=== PATIENT | male | born 1960 | race American Indian/Alaskan Native ===

== ENCOUNTER 2020-06-18 19:53 | Inpatient (IN) | payer BC ==
--- NOTE | 2020-06-18 20:16 | Event Note ---
ED Screening Note Date of service: 06/18/20 Time: 20:12 ED Screening Note: 60-year-old -Swedish male presents to the emergency room complaining of shortness of breath with a nonproductive cough since . Patient states that difficulty in breathing with exertion. Complains of generalized weakness. He has had a fever. Denies any nausea no vomiting. Last Tylenol was at 10 AM today. 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 Patient states he did have a rapid Covid test today and it stated it was negative. Patient is noted to have difficulty speaking in complete sentences mild respiratory distress. This initial assessment/diagnostic orders/clinical plan/treatment(s) is/are subject to change based on patients health status, clinical progression and re- assessment by fellow clinical providers in the ED. Further treatment and workup at subsequent clinical providers discretion. Patient/guardian urged not to elope from the ED as their condition may be serious if not clinically assessed and managed. Initial orders include: Chest x-ray CBC CMP has been ordered.
[2020-06-18 20:52] LABS: Basophils % (Auto) 0.1 % (0.0-1.8); Eosinophils # (Auto) 0.1 K/mm3 (0.0-0.4); Eosinophils % (Auto) 0.7 % (0.0-4.3); Hematocrit 40.6 % (35.5-45.6); Lymphocytes # (Auto) 1.3 K/mm3 (1.2-5.4); Lymphocytes % (Auto) 17.1 % (13.4-35.0); Mean Corpuscular HGB Conc 35 % (32-34); Mean Corpuscular Volume 88 fl (84-94); Monocytes # (Auto) 0.7 K/mm3 (0.0-0.8); Platelet Count 474 K/mm3 (140-440); Red Cell Distribution Width 15.5 % (13.2-15.2)
--- NOTE | 2020-06-18 21:09 | Emergency Department Report ---
ED Shortness of Breath HPI - General Chief Complaint: Dyspnea/Respdistress Stated Complaint: LOW SATS Time Seen by Provider: 06/18/20 20:12 Source: patient Mode of arrival: Ambulatory Limitations: No Limitations - History of Present Illness Initial Comments: 60-year-old male, no past medical history, presents to ED with complaint of difficulty breathing. Patient suspects he may have COVID-19. 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 He reports he began having flulike symptoms about 10 days ago on . Patient reports he has had fever, cough, general malaise, change in sense of taste. He states approximately 5 days ago, he began having difficulty breathing with exertion. Patient had a rapid Covid test today that was negative. MD Complaint: shortness of breath -: days(s) (5) Severity: moderate Consistency: intermittent Improves With: rest Worsens With: exertion Context: recent URI Associated Symptoms: fever, cough Treatments Prior to Arrival: none - Related Data Home Oxygen Therapy: No Allergies Allergy/AdvReac Type Severity Reaction Status Date / Time No Known Allergies Allergy Verified 06/18/20 20:02 ED Review of Systems ROS: Stated complaint: LOW SATS Other details as noted in HPI Comment: All other systems reviewed and negative Constitutional: malaise Eyes: eye pain Respiratory: cough, SOB with exertion Gastrointestinal: diarrhea ED Past Medical Hx - Past Medical History Previous Medical History?: No - Surgical History Past Surgical History?: No - Social History Smoking Status: Former Smoker Substance Use Type: None ED Physical Exam - General Limitations: No Limitations General appearance: alert - Head Head exam: Present: atraumatic, normocephalic - Eye Eye exam: Present: normal appearance, EOMI - ENT ENT exam: Present: mucous membranes moist - Neck Neck exam: Present: normal inspection - Respiratory Respiratory exam: Present: normal lung sounds bilaterally, other (Tachypneic, unable to speak in full sentences) - Cardiovascular Cardiovascular Exam: Present: regular rate, normal rhythm - GI/Abdominal GI/Abdominal exam: Present: soft. Absent: distended, tenderness - Extremities Exam Extremities exam: Present: normal inspection - Neurological Exam Neurological exam: Present: alert, oriented X3 - Psychiatric Psychiatric exam: Present: normal affect, normal mood - Skin Skin exam: Present: warm, dry, intact, normal color ED Course Vital Signs 06/18/20 06/18/20 20:03 21:12 Temperature 98.8 F Pulse Rate 92 H 104 H Respiratory 18 22 Rate Blood Pressure 111/81 O2 Sat by Pulse 94 88 Oximetry - Reevaluation(s) Reevaluation #1: 06/18/20 21:20 With ambulation, patient's O2 sats dropped down to 87-88% RA. ED Medical Decision Making - Lab Data Result diagrams: 06/18/20 20:42 06/18/20 21:20 - EKG Data -: EKG Interpreted by Me EKG shows normal: sinus rhythm, axis, intervals, QRS complexes, ST-T waves Rate: normal - EKG Data Interpretation: no acute changes - Radiology Data Radiology results: report reviewed, image reviewed - Medical Decision Making 60-year-old male presents to ED with likely COVID-19 infection. He reports dyspnea on exertion over the last 5 days. O2 sats dropped to 87-88% on room air with ambulation. Chest x-ray shows patchy airspace opacities bilaterally likely representing viral infectious process. Blood cultures have been drawn. Patient given Rocephin, azithromycin, Decadron. Patient placed on 4 L O2. Covid markers sent as well. Patient will be admitted by hospitalist for further management. - Differential Diagnosis Pneumonia, COVID-19 Critical care attestation.: If time is entered above; I have spent that time in minutes in the direct care of this critically ill patient, excluding procedure time. ED Disposition Clinical Impression: Acute hypoxemic respiratory failure, Suspected 2019 novel coronavirus infection, Pneumonia, Hyponatremia, Hypokalemia Disposition: 09 OP ADMIT IP TO THIS HOSP Is pt being admited?: Yes Condition: Stable Time of Disposition: 22:04
[2020-06-18 21:14] LABS: Alanine Aminotransferase 36 units/L (7-56); Albumin 3.7 g/dL (3.9-5); BUN/Creatinine Ratio 15; Blood Urea Nitrogen 15 mg/dL (9-20); Calcium 8.7 mg/dL (8.4-10.2); Hemolysis Index 12
[2020-06-18] MEDS ORDERED: cefTRIAXone/NS 1 GM/50 ML 1 GM/50 ML BAG IV ONE (21:14)
[2020-06-18] MEDS ORDERED: DEXAMETHASONE 4 MG TAB PO ONE (21:14)
[2020-06-18] MEDS ORDERED: AZITHROMYCIN 250 MG TAB PO ONE (21:14)
[2020-06-18] MEDS ORDERED: POTASSIUM CHLORIDE ER 20 MEQ TAB PO ONE (21:19)
--- NOTE | 2020-06-18 21:25 | XRay Report ---
CHEST 2 VIEWS INDICATION / CLINICAL INFORMATION: sob. COMPARISON: 01/07/2016 FINDINGS: SUPPORT DEVICES: None. HEART / MEDIASTINUM: No significant abnormality. LUNGS / PLEURA: Interval development of patchy airspace opacities throughout bilateral lung ontiveros wi th peripheral predominance, most severe on the right. No pneumothorax. No pleural effusion. ADDITIONAL FINDINGS: No significant additional findings. IMPRESSION: 1. Interval development of patchy airspace opacities within bilateral lung ontiveros as described above likely represent viral versus atypical infectious process. Signer Name: Jf Rose MD Signed: 06/18/2020 9:21 PM Workstation Name: [id number]
[2020-06-18 21:50] LABS: INR 1.13 (0.87-1.13)
[2020-06-18 21:51] LABS: Partial Thromboplastin Time 27.7 Sec. (24.2-36.6)
[2020-06-18 22:02] LABS: C-Reactive Protein 14.4 mg/dL (0.00-1.30)
[2020-06-18] MEDS ORDERED: MAGNESIUM HYDROXIDE (MOM) ORAL LIQD UDC PO PRN (22:41)
[2020-06-18] MEDS ORDERED: ACETAMINOPHEN 325 MG TAB PO PRN (22:41)
[2020-06-18] MEDS ORDERED: ONDANSETRON 4 MG/2 ML INJ IV PRN (22:41)
[2020-06-18] MEDS ORDERED: MORPHINE 2 MG/1 ML INJ IV PRN (22:41)
--- NOTE | 2020-06-18 22:49 | History and Physical Report ---
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 He has been having fever, chills, cough and generalized malaise. He has also had some changes in his sense of taste. Over the past few days he has been having shortness of breath especially with exertion. He denies any sick contacts and no recent travel. He has however been exposed to patient with COVID-19 while on duty in the hospital. He had a rapid Covid test today which he indicates was negative. Upon arrival in the emergency room patient was slightly tachypneic and hypoxic on exertion. Work-up in the emergency room today, chest x-ray : Interval development of patch y airspace opacities within bilateral lung ontiveros - likely represent viral versus atypical infectious process. Covid markers were elevated. Patient has been started on empiric IV antibiotics for pneumonia and to rule out possible Covid. Past History Past Medical History: No medical history Past Surgical History: No surgical history Social history: smoking (Former Smoker) Family history: no significant family history Medications and Allergies Allergies Allergy/AdvReac Type Severity Reaction Status Date / Time No Known Allergies Allergy Verified 06/18/20 20:02 Active Meds: Active Medications Acetaminophen (Acetaminophen 325 Mg Tab) 650 mg PO Q4H PRN PRN Reason: Pain MILD(1-3)/Fever >100.5/PETTIT Dexamethasone (Dexamethasone 4 Mg/Ml Vial) 6 mg IV Q24HR VITO Enoxaparin Sodium (Enoxaparin 40 Mg/0.4 Ml Inj) 40 mg SUB-Q QDAY@2200 VITO; Protocol Ceftriaxone Sodium (Rocephin/Ns 2 Gm/100 Ml) 2 gm in 100 mls @ 200 mls/hr IV Q24H VITO; Protocol Azithromycin 500 mg/ Sodium (Chloride) 250 mls @ 250 mls/hr IV Q24H VITO; Protocol Magnesium Hydroxide (Magnesium Hydroxide (Mom) Oral Liqd Udc) 30 ml PO Q4H PRN PRN Reason: Constipation Morphine Sulfate (Morphine 2 Mg/1 Ml Inj) 2 mg IV Q4H PRN PRN Reason: Pain, Moderate (4-6) Ondansetron HCl (Ondansetron 4 Mg/2 Ml Inj) 4 mg IV Q8H PRN PRN Reason: Nausea And Vomiting Sodium Chloride (Sodium Chloride 0.9% 10 Ml Flush Syringe) 10 ml IV BID VITO Sodium Chloride (Sodium Chloride 0.9% 10 Ml Flush Syringe) 10 ml IV PRN PRN PRN Reason: LINE FLUSH Review of Systems Constitutional: fever, chills, malaise Cardiovascular: no chest pain, no palpitations Respiratory: cough, shortness of breath Gastrointestinal: diarrhea, no abdominal pain, no nausea, no vomiting Genitourinary Male: no dysuria, no hematuria, no flank pain Musculoskeletal: no neck pain, no low back pain Integumentary: no rash, no pruritis Neurological: no headaches, no confusion Psychiatric: no anxiety, no depression Exam - Constitutional Vitals: Temp Pulse Resp BP Pulse Ox 98.8 F 104 H 22 111/81 88 06/18/20 20:03 06/18/20 21:12 06/18/20 21:12 06/18/20 20:03 06/18/20 21:12 General appearance: Present: no acute distress, well-nourished - EENT Eyes: Present: PERRL, EOM intact. Absent: scleral icterus ENT: hearing intact, clear oral mucosa, dentition normal - Neck Neck: Present: supple, normal ROM - Respiratory Respiratory effort: normal Respiratory: bilateral: diminished - Cardiovascular Rhythm: regular Heart Sounds: Present: S1 & S2. Absent: gallop, systolic murmur, diastolic murmur, rub - Extremities Extremities: no ischemia, pulses intact, pulses symmetrical, No edema, Full ROM Peripheral Pulses: within normal limits - Abdominal General gastrointestinal: Present: soft, non-tender, non-distended, normal bowel sounds. Absent: mass - Integumentary Integumentary: Present: clear, warm, dry. Absent: rash - Musculoskeletal Musculoskeletal: strength equal bilaterally - Psychiatric Psychiatric: appropriate mood/affect, intact judgment & insight, memory intact, cooperative - Neurologic Neurologic: CNII-XII intact, no focal deficits, moves all extremities HEART Score - HEART Score Troponin: Troponin T < 0.010 ng/mL (0.00-0.029) 06/18/20 21:20 Results - Labs CBC & Chem 7: 06/18/20 20:42 06/18/20 21:20 Labs: Abnormal lab results 06/18/20 06/18/20 06/18/20 Range/Units 20:42 20:42 21:20 MCHC 35 H (32-34) % RDW 15.5 H (13.2-15.2) % Plt Count 474 H (140-440) K/mm3 [place] % (Auto) 9.0 H (0.0-7.3) % Seg Neutrophils % 73.1 H (40.0-70.0) % D-Dimer 1113.12 H (0-234) ng/mlDDU Sodium 128 L (137-145) mmol/L Potassium 3.4 L (3.6-5.0) mmol/L Chloride 91.3 L (98-107) mmol/L Glucose 101 H (75-100) mg/dL Ferritin (30.0-300.0) ng/mL Lactate Dehydrogenase (91-180) units/L C-Reactive Protein (0.00-1.30) mg/dL Total Protein 8.5 H (6.3-8.2) g/dL Albumin 3.7 L (3.9-5) g/dL 06/18/20 06/18/20 Range/Units 21:20 21:20 MCHC (32-34) % RDW (13.2-15.2) % Plt Count (140-440) K/mm3 [place] % (Auto) (0.0-7.3) % Seg Neutrophils % (40.0-70.0) % D-Dimer (0-234) ng/mlDDU Sodium (137-145) mmol/L Potassium (3.6-5.0) mmol/L Chloride (98-107) mmol/L Glucose 103 H (75-100) mg/dL Ferritin 1133.0 H (30.0-300.0) ng/mL Lactate Dehydrogenase 359 H (91-180) units/L C-Reactive Protein 14.40 H (0.00-1.30) mg/dL Total Protein (6.3-8.2) g/dL Albumin (3.9-5) g/dL Assessment and Plan - Patient Problems (1) Acute hypoxemic respiratory failure Current Visit: Yes Status: Acute Plan to address problem: Possibly secondary to underlying pneumonia. Keep O2 saturation greater or equal to 94%. (2) Pneumonia Current Visit: Yes Status: Acute Plan to address problem: Patient placed on empiric IV antibiotics. Will await culture results. Consult placed to infectious disease for evaluation. (3) Hypokalemia Current Visit: Yes Status: Acute Plan to address problem: Potassium will be repleted and will monitor chemistry. (4) Hyponatremia Current Visit: Yes Status: Acute Plan to address problem: Patient placed on gentle IV fluid normal saline. Will monitor chemistry. (5) Suspected 2019 novel coronavirus infection Current Visit: Yes Status: Acute Plan to address problem: We will await COVID-19 testing. Consult placed to infectious disease for evaluation. (6) DVT prophylaxis Current Visit: Yes Status: Acute Plan to address problem: Patient placed on subcutaneous Lovenox. (7) Full code status Current Visit: Yes Status: Acute Plan to address problem: Patient is a full code.
[2020-06-18] MEDS ORDERED: SODIUM CHLORIDE 0.9% 1000 ML 1,000 ML IV SCH (23:45)
[2020-06-19 06:04] LABS: Mean Corpuscular HGB Conc 33 % (32-34); Mean Corpuscular Volume 90 fl (84-94); Platelet Count 499 K/mm3 (140-440); Red Blood Count 4.69 M/mm3 (3.65-5.03); Red Cell Distribution Width 15.6 % (13.2-15.2)
[2020-06-19 06:14] LABS: INR 1.16 (0.87-1.13)
[2020-06-19 06:21] LABS: BUN/Creatinine Ratio 17; Blood Urea Nitrogen 17 mg/dL (9-20); Hemolysis Index 3
[2020-06-19 06:28] LABS: Eosinophils % (Auto) 0.1 % (0.0-4.3); Lymphocytes # (Auto) 0.7 K/mm3 (1.2-5.4); Lymphocytes % (Auto) 14.2 % (13.4-35.0); Monocytes # (Auto) 0.3 K/mm3 (0.0-0.8); Monocytes % (Auto) 4.1 % (0.0-7.3)
[2020-06-19] MEDS ORDERED: AZITHROMYCIN 500 MG in SODIUM CHLORIDE 0.9% 250ML 250 ML IV SCH (10:00)
[2020-06-19] MEDS ORDERED: cefTRIAXone/NS 2 GM/100 ML 2 GM/100 ML BAG IV SCH (10:00)
[2020-06-19] MEDS: dexAMETHasone 4 MG/ML VIAL IV SCH (10:41)
--- NOTE | 2020-06-19 16:20 | Progress Note ---
Assessment and Plan --Acute hypoxemic respiratory failure Possibly secondary to underlying pneumonia. Keep O2 saturation greater or equal to 94%. -- Pneumonia due to COVID 19 d/c empiric IV antibiotics as procalcitonon level low. Consult placed to infectious disease for evaluation. cont dexamethasone, start on remdesivir follow inflammatory markers -- Hypokalemia repleted and will monitor chemistry. -- Hyponatremia due to dehydration Patient placed on gentle IV fluid normal saline. Will monitor chemistry. --novel coronavirus infection positive COVID-19 testing. Consult placed to infectious disease for evaluation. -- DVT prophylaxis Patient placed on subcutaneous Lovenox. --Full code status 06/19/20: positive for COVID 19, start on remdesivir as patient is hypoxic and presented early in his disease course. consult ID. patient on 3L N/c Subjective Date of service: 06/19/20 Interval history: Patient seen and examined. Medical records and medication list reviewed. No acute event overnight noted by the RN. Patient is positive for COVID-19. Patient is tolerating diet. Patient on 3 L nasal cannula, denies any chest pain Discussed plan of care at bedside with patient. Objective - Exam Narrative Exam: Limited physical exam due to COVID-19 pandemic to limit transmission of the disease and also PPE conservative approach Vitals noted General: No acute distress Neuro: No focal deficits, follow commands Psych: Alert awake and oriented x2 Respiratory/cardiac: Vitals stable, patient on 3 L nasal cannula noted no respiratory distress Skin: No rash Musculoskeletal: No joint swelling - Constitutional Vitals: Vital Signs - 12hr 06/19/20 06/19/20 06/19/20 05:19 05:30 06:00 Temperature Pulse Rate 83 83 81 Respiratory 27 H 17 18 Rate Blood Pressure 115/80 100/74 114/83 O2 Sat by Pulse 98 95 97 Oximetry 06/19/20 06/19/20 06/19/20 06:15 06:30 06:45 Temperature Pulse Rate 82 77 78 Respiratory 17 20 23 Rate Blood Pressure 114/83 108/75 108/75 O2 Sat by Pulse 97 98 Oximetry 06/19/20 06/19/20 06/19/20 06:49 06:51 06:53 Temperature Pulse Rate 76 79 77 Respiratory 17 17 17 Rate Blood Pressure 108/75 108/75 108/75 O2 Sat by Pulse 96 96 96 Oximetry 06/19/20 06/19/20 06/19/20 06:55 06:57 06:59 Temperature Pulse Rate 69 77 78 Respiratory 20 17 16 Rate Blood Pressure 108/75 108/75 108/75 O2 Sat by Pulse 96 96 96 Oximetry 06/19/20 06/19/20 06/19/20 07:00 07:01 07:03 Temperature Pulse Rate 79 88 83 Respiratory 19 26 H 20 Rate Blood Pressure 102/73 102/73 102/73 O2 Sat by Pulse 93 95 96 Oximetry 06/19/20 06/19/20 06/19/20 07:05 07:07 07:09 Temperature Pulse Rate 76 74 86 Respiratory 16 14 13 Rate Blood Pressure 102/73 102/73 102/73 O2 Sat by Pulse 96 96 95 Oximetry 06/19/20 06/19/20 06/19/20 07:11 07:13 07:15 Temperature Pulse Rate 84 83 82 Respiratory 23 22 19 Rate Blood Pressure 102/73 102/73 102/73 O2 Sat by Pulse 96 95 96 Oximetry 06/19/20 06/19/20 06/19/20 07:17 07:19 07:21 Temperature Pulse Rate 83 84 83 Respiratory 14 12 14 Rate Blood Pressure 102/73 102/73 102/73 O2 Sat by Pulse 96 96 96 Oximetry 06/19/20 06/19/20 06/19/20 07:23 07:25 07:27 Temperature Pulse Rate 84 85 84 Respiratory 22 19 18 Rate Blood Pressure 102/73 102/73 102/73 O2 Sat by Pulse 96 97 97 Oximetry 06/19/20 06/19/20 06/19/20 07:29 07:31 07:33 Temperature Pulse Rate 83 84 87 Respiratory 17 19 15 Rate Blood Pressure 102/73 117/83 117/83 O2 Sat by Pulse 97 95 95 Oximetry 06/19/20 06/19/20 06/19/20 07:35 07:37 07:39 Temperature Pulse Rate 86 83 82 Respiratory 19 14 18 Rate Blood Pressure 117/83 117/83 117/83 O2 Sat by Pulse 96 97 97 Oximetry 06/19/20 06/19/20 06/19/20 07:41 07:43 07:45 Temperature Pulse Rate 84 85 87 Respiratory 30 H 17 24 Rate Blood Pressure 117/83 117/83 117/83 O2 Sat by Pulse 93 94 Oximetry 06/19/20 06/19/2006/19/21 07:47 07:49 07:51 Temperature Pulse Rate 88 85 83 Respiratory 18 17 17 Rate Blood Pressure 117/83 117/83 117/83 O2 Sat by Pulse 97 97 Oximetry 06/19/20 06/19/20 06/19/20 07:53 07:55 07:57 Temperature Pulse Rate 81 83 78 Respiratory 21 18 18 Rate Blood Pressure 117/83 117/83 117/83 O2 Sat by Pulse 97 98 97 Oximetry 06/19/20 06/19/20 06/19/20 07:59 08:00 08:01 Temperature Pulse Rate 76 76 92 H Respiratory 18 21 24 Rate Blood Pressure 117/83 113/78 113/78 O2 Sat by Pulse 97 97 Oximetry 06/19/20 06/19/20 06/19/20 08:03 08:05 08:07 Temperature Pulse Rate 80 80 81 Respiratory 20 25 H 23 Rate Blood Pressure 113/78 113/78 113/78 O2 Sat by Pulse 98 97 97 Oximetry 06/19/20 06/19/20 06/19/20 08:09 08:11 08:13 Temperature Pulse Rate 81 84 80 Respiratory 27 H 25 H 17 Rate Blood Pressure 113/78 113/78 113/78 O2 Sat by Pulse 97 97 97 Oximetry 06/19/20 06/19/20 06/19/20 08:15 08:17 08:19 Temperature Pulse Rate 82 80 81 Respiratory 17 18 22 Rate Blood Pressure 113/78 113/78 113/78 O2 Sat by Pulse 97 98 98 Oximetry 06/19/20 06/19/20 06/19/20 08:21 08:23 12:31 Temperature 97.7 F Pulse Rate 83 79 Respiratory 19 19 21 Rate Blood Pressure 113/78 115/71 O2 Sat by Pulse 97 96 97 Oximetry 06/19/20 06/19/20 06/19/20 12:33 12:35 12:37 Temperature Pulse Rate 80 79 78 Respiratory 16 21 14 Rate Blood Pressure 115/71 115/71 115/71 O2 Sat by Pulse 97 96 97 Oximetry 06/19/20 06/19/20 06/19/20 12:39 12:41 12:43 Temperature Pulse Rate 81 85 84 Respiratory 16 19 19 Rate Blood Pressure 115/71 115/71 115/71 O2 Sat by Pulse 96 95 96 Oximetry 06/19/20 06/19/20 06/19/20 12:45 12:47 12:49 Temperature Pulse Rate 85 83 87 Respiratory 19 29 H 19 Rate Blood Pressure 115/71 115/71 115/71 O2 Sat by Pulse 96 97 97 Oximetry 06/19/20 06/19/20 06/19/20 12:51 12:53 12:55 Temperature Pulse Rate 90 92 H 85 Respiratory 29 H 19 22 Rate Blood Pressure 115/71 115/71 115/71 O2 Sat by Pulse 96 94 95 Oximetry 06/19/20 06/19/20 06/19/20 12:57 12:59 13:00 Temperature Pulse Rate 89 90 88 Respiratory 25 H 20 18 Rate Blood Pressure 115/71 115/71 121/79 O2 Sat by Pulse 96 96 93 Oximetry 06/19/20 06/19/20 06/19/20 13:01 13:03 13:05 Temperature Pulse Rate 85 90 90 Respiratory 19 38 H 22 Rate Blood Pressure 121/79 121/79 121/79 O2 Sat by Pulse 95 95 96 Oximetry 06/19/20 06/19/20 06/19/20 13:07 13:09 13:11 Temperature Pulse Rate 87 89 91 H Respiratory 16 34 H 16 Rate Blood Pressure 121/79 121/79 121/79 O2 Sat by Pulse 96 97 97 Oximetry 06/19/20 06/19/20 06/19/20 13:13 13:15 13:16 Temperature Pulse Rate 88 89 87 Respiratory 21 32 H 28 H Rate Blood Pressure 121/79 121/79 121/79 O2 Sat by Pulse 96 95 95 Oximetry 06/19/20 06/19/20 06/19/20 13:17 13:19 13:21 Temperature Pulse Rate 93 H 93 H 90 Respiratory 19 29 H 23 Rate Blood Pressure 121/79 121/79 121/79 O2 Sat by Pulse 93 95 95 Oximetry 06/19/20 06/19/20 06/19/20 13:23 13:24 13:25 Temperature Pulse Rate 92 H 95 H 94 H Respiratory 31 H 21 26 H Rate Blood Pressure 121/79 121/79 121/79 O2 Sat by Pulse 94 96 95 Oximetry 06/19/20 06/19/20 06/19/20 13:27 13:29 13:30 Temperature Pulse Rate Respiratory Rate Blood Pressure 121/79 121/79 106/70 O2 Sat by Pulse 95 97 95 Oximetry 06/19/20 06/19/20 06/19/20 13:31 13:33 13:35 Temperature Pulse Rate 157 H Respiratory Rate Blood Pressure 106/70 106/70 121/79 O2 Sat by Pulse 97 96 97 Oximetry 06/19/20 06/19/20 06/19/20 13:37 13:39 13:41 Temperature Pulse Rate 85 86 84 Respiratory Rate Blood Pressure 121/79 121/79 121/79 O2 Sat by Pulse 97 97 97 Oximetry 06/19/20 06/19/20 06/19/20 13:43 13:45 13:47 Temperature Pulse Rate 82 86 85 Respiratory Rate Blood Pressure 121/79 121/79 121/79 O2 Sat by Pulse 97 96 96 Oximetry 06/19/20 06/19/20 06/19/20 13:49 13:51 13:53 Temperature Pulse Rate 85 86 85 Respiratory Rate Blood Pressure 121/79 121/79 121/79 O2 Sat by Pulse 96 96 96 Oximetry 06/19/20 06/19/20 06/19/20 13:55 13:57 13:59 Temperature Pulse Rate 85 85 84 Respiratory Rate Blood Pressure 121/79 121/79 121/79 O2 Sat by Pulse 96 96 95 Oximetry 06/19/20 14:00 Temperature Pulse Rate 86 Respiratory Rate Blood Pressure 112/77 O2 Sat by Pulse Oximetry - Labs CBC & Chem 7: 06/19/20 04:47 06/19/20 04:47 Labs: Abnormal lab results 06/18/20 06/18/20 06/18/20 Range/Units 20:42 20:42 21:20 MCHC 35 H (32-34) % RDW 15.5 H (13.2-15.2) % Plt Count 474 H (140-440) K/mm3 [place] % (Auto) 9.0 H (0.0-7.3) % Lymph # (Auto) (1.2-5.4) K/mm3 Seg Neutrophils % 73.1 H (40.0-70.0) % INR (0.87-1.13) D-Dimer 1113.12 H (0-234) ng/mlDDU Sodium 128 L (137-145) mmol/L Potassium 3.4 L (3.6-5.0) mmol/L Chloride 91.3 L (98-107) mmol/L Glucose 101 H (75-100) mg/dL Ferritin (30.0-300.0) ng/mL Lactate Dehydrogenase (91-180) units/L C-Reactive Protein (0.00-1.30) mg/dL Total Protein 8.5 H (6.3-8.2) g/dL Albumin 3.7 L (3.9-5) g/dL Coronavirus (PCR) (Negative) 06/18/20 06/18/20 06/19/20 Range/Units 21:20 21:20 04:47 MCHC (32-34) % RDW 15.6 H (13.2-15.2) % Plt Count 499 H (140-440) K/mm3 [place] % (Auto) (0.0-7.3) % Lymph # (Auto) 0.7 L (1.2-5.4) K/mm3 Seg Neutrophils % 81.3 H (40.0-70.0) % INR (0.87-1.13) D-Dimer (0-234) ng/mlDDU Sodium (137-145) mmol/L Potassium (3.6-5.0) mmol/L Chloride (98-107) mmol/L Glucose 103 H (75-100) mg/dL Ferritin 1133.0 H (30.0-300.0) ng/mL Lactate Dehydrogenase 359 H (91-180) units/L C-Reactive Protein 14.40 H (0.00-1.30) mg/dL Total Protein (6.3-8.2) g/dL Albumin (3.9-5) g/dL Coronavirus (PCR) (Negative) 06/19/20 06/19/20 06/19/20 Range/Units 04:47 04:47 Unknown MCHC (32-34) % RDW (13.2-15.2) % Plt Count (140-440) K/mm3 [place] % (Auto) (0.0-7.3) % Lymph # (Auto) (1.2-5.4) K/mm3 Seg Neutrophils % (40.0-70.0) % INR 1.16 H (0.87-1.13) D-Dimer (0-234) ng/mlDDU Sodium 132 L (137-145) mmol/L Potassium (3.6-5.0) mmol/L Chloride 95.3 L (98-107) mmol/L Glucose 122 H (75-100) mg/dL Ferritin (30.0-300.0) ng/mL Lactate Dehydrogenase (91-180) units/L C-Reactive Protein (0.00-1.30) mg/dL Total Protein (6.3-8.2) g/dL Albumin (3.9-5) g/dL Coronavirus (PCR) Positive A (Negative) HEART Score - HEART Score Troponin: Troponin T < 0.010 ng/mL (0.00-0.029) 06/18/20 21:20
[2020-06-19] MEDS ORDERED: REMDESIVIR 100 MG VIAL IV ONE (16:30)
[2020-06-19] MEDS ORDERED: REMDESIVIR 200 MG in SODIUM CHLORIDE 0.9% 250ML 250 ML IV ONE (16:30)
[2020-06-19] MEDS: ZINC SULFATE 220 MG CAP PO SCH ×2 (16:44→22:46)
[2020-06-19] MEDS: ASCORBIC ACID 500 MG TAB PO SCH ×2 (16:44→22:45)
[2020-06-19] MEDS: CHOLECALCIFEROL (VIT D3) 5,000 UNIT TAB PO SCH (16:44)
[2020-06-19] MEDS: IPRATROPIUM/ALBUTEROL SULFATE 3 ML AMPUL.NEB IH SCH ×2 (19:15→20:49)
--- NOTE | 2020-06-19 20:15 | Consultation ---
History of Present Illness - Reason for Consult Consult date: 06/19/20 - History of Present Illness 60-year-old man no past medical history admitted to hospital complaining of flulike symptoms. 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 He complains of fevers, chills, cough, malaise. He has been exposed to Covid patients in the hospital. Afebrile since admission with a normal white count. Covid positive. Procalcitonin normal. Normal renal function. Elevated inflammatory markers. Blood cultures pending. Imaging personally viewed: Chest x-ray: Patchy airspace opacities bilaterally Review of systems: Deferred due to PPE conservation strategy. Past History Past Medical History: No medical history Past Surgical History: No surgical history Social history: smoking (Former Smoker) Family history: no significant family history Medications and Allergies Allergies Allergy/AdvReac Type Severity Reaction Status Date / Time No Known Allergies Allergy Verified 06/18/20 20:02 Active Meds: Active Medications Acetaminophen (Acetaminophen 325 Mg Tab) 650 mg PO Q4H PRN PRN Reason: Pain MILD(1-3)/Fever >100.5/PETTIT Albuterol/Ipratropium (Ipratropium/Albuterol Sulfate 3 Ml Ampul.Neb) 1 ampul IH Q6HRT [facility] Last Admin: 06/19/20 19:15 Dose: Not Given Documented by: Ascorbic Acid (Ascorbic Acid 500 Mg Tab) 1,000 mg PO BID [facility] Last Admin: 06/19/20 16:44 Dose: 1,000 mg Documented by: Cholecalciferol (Cholecalciferol (Vit D3) 5,000 Unit Tab) 5,000 unit PO DAILY [facility] Last Admin: 06/19/20 16:44 Dose: 5,000 unit Documented by: Dexamethasone (Dexamethasone 4 Mg/Ml Vial) 6 mg IV Q24HR [facility] Stop: 06/28/20 10:01 Last Admin: 06/19/20 10:41 Dose: 6 mg Documented by: Enoxaparin Sodium (Enoxaparin 40 Mg/0.4 Ml Inj) 40 mg SUB-Q QDAY@2200 [facility]; Protocol Sodium Chloride (Nacl 0.9% 1000 Ml) 1,000 mls @ 75 mls/hr IV DIRECT [facility] REMDESIVIR 100 mg/ Sodium (Chloride) 250 mls @ 500 mls/hr IV Q24HR@2100 [facility] Stop: 06/23/20 21:29 Magnesium Hydroxide (Magnesium Hydroxide (Mom) Oral Liqd Udc) 30 ml PO Q4H PRN PRN Reason: Constipation Morphine Sulfate (Morphine 2 Mg/1 Ml Inj) 2 mg IV Q4H PRN PRN Reason: Pain, Moderate (4-6) Ondansetron HCl (Ondansetron 4 Mg/2 Ml Inj) 4 mg IV Q8H PRN PRN Reason: Nausea And Vomiting Sodium Chloride (Sodium Chloride 0.9% 10 Ml Flush Syringe) 10 ml IV BID [facility] Last Admin: 06/19/20 10:41 Dose: 10 ml Documented by: Sodium Chloride (Sodium Chloride 0.9% 10 Ml Flush Syringe) 10 ml IV PRN PRN PRN Reason: LINE FLUSH Sodium Chloride (Sodium Chloride 0.9% 50 Ml Ivpb) 50 ml IV Q24HR@2100 [facility] Stop: 06/23/20 21:01 Zinc Sulfate (Zinc Sulfate 220 Mg Cap) 220 mg PO BID [facility] Last Admin: 06/19/20 16:44 Dose: 220 mg Documented by: Physical Examination - Physical Exam Narrative exam: Physical exam deferred due to PPE conservation strategy. Please refer to primary team's note. - Constitutional Vitals: Vital Signs Temp Pulse Resp BP Pulse Ox 97.7 F 89 40 H 119/68 97 06/19/20 08:23 06/19/20 19:46 06/19/20 19:00 06/19/20 20:00 06/19/20 20:00 Temperature -Last 24 Hours Temperature 97.7 F Results - Labs CBC & Chem 7: 06/19/20 04:47 06/19/20 04:47 Labs: Abnormal lab results 06/18/20 06/18/20 06/18/20 Range/Units 20:42 20:42 21:20 MCHC 35 H (32-34) % RDW 15.5 H (13.2-15.2) % Plt Count 474 H (140-440) K/mm3 [place] % (Auto) 9.0 H (0.0-7.3) % Lymph # (Auto) (1.2-5.4) K/mm3 Seg Neutrophils % 73.1 H (40.0-70.0) % INR (0.87-1.13) D-Dimer 1113.12 H (0-234) ng/mlDDU Sodium 128 L (137-145) mmol/L Potassium 3.4 L (3.6-5.0) mmol/L Chloride 91.3 L (98-107) mmol/L Glucose 101 H (75-100) mg/dL Ferritin (30.0-300.0) ng/mL Lactate Dehydrogenase (91-180) units/L C-Reactive Protein (0.00-1.30) mg/dL Total Protein 8.5 H (6.3-8.2) g/dL Albumin 3.7 L (3.9-5) g/dL Coronavirus (PCR) (Negative) 06/18/20 06/18/20 06/19/20 Range/Units 21:20 21:20 04:47 MCHC (32-34) % RDW 15.6 H (13.2-15.2) % Plt Count 499 H (140-440) K/mm3 [place] % (Auto) (0.0-7.3) % Lymph # (Auto) 0.7 L (1.2-5.4) K/mm3 Seg Neutrophils % 81.3 H (40.0-70.0) % INR (0.87-1.13) D-Dimer (0-234) ng/mlDDU Sodium (137-145) mmol/L Potassium (3.6-5.0) mmol/L Chloride (98-107) mmol/L Glucose 103 H (75-100) mg/dL Ferritin 1133.0 H (30.0-300.0) ng/mL Lactate Dehydrogenase 359 H (91-180) units/L C-Reactive Protein 14.40 H (0.00-1.30) mg/dL Total Protein (6.3-8.2) g/dL Albumin (3.9-5) g/dL Coronavirus (PCR) (Negative) 06/19/20 06/19/20 06/19/20 Range/Units 04:47 04:47 Unknown MCHC (32-34) % RDW (13.2-15.2) % Plt Count (140-440) K/mm3 [place] % (Auto) (0.0-7.3) % Lymph # (Auto) (1.2-5.4) K/mm3 Seg Neutrophils % (40.0-70.0) % INR 1.16 H (0.87-1.13) D-Dimer (0-234) ng/mlDDU Sodium 132 L (137-145) mmol/L Potassium (3.6-5.0) mmol/L Chloride 95.3 L (98-107) mmol/L Glucose 122 H (75-100) mg/dL Ferritin (30.0-300.0) ng/mL Lactate Dehydrogenase (91-180) units/L C-Reactive Protein (0.00-1.30) mg/dL Total Protein (6.3-8.2) g/dL Albumin (3.9-5) g/dL Coronavirus (PCR) Positive A (Negative) Assessment and Plan Cultures: Blood culture no growth to date A/P: 60-year-old man no past medical history admitted with COVID-19 pneumonia #Acute hypoxemic respiratory failure: Likely secondary to COVID-19 infection. #COVID-19 pneumonia: Patient presented with a week of symptoms, chest x-ray with diffuse bilateral infiltrates. Elevated inflammatory markers. Normal procalcit onin. Recs: -Continue Dexamethasone 6 mg IV/PO daily for 10 days -Continue Remdesivir. CrCl>30. Day 1 of 5 -Obtain daily inflammatory markers - ferritin, Ddimer, CRP, LDH -Anticoagulation per hospital protocol -Proning as able. -No need for antibiotics normal white count and procalcitonin. Thank you for the consult, we will continue to follow. Misael Peace MD [facility] ([facility] O: [phone] F: [phone]
[2020-06-19] MEDS ORDERED: ENOXAPARIN 40 MG/0.4 ML INJ SUB-Q SCH (22:00)
[2020-06-19] MEDS: SODIUM CHLORIDE 0.9% 50 ML IVPB IV SCH (22:45)
[2020-06-20] MEDS: IPRATROPIUM/ALBUTEROL SULFATE 3 ML AMPUL.NEB IH SCH ×4 (04:31→20:30)
[2020-06-20] MEDS: ASCORBIC ACID 500 MG TAB PO SCH ×2 (10:42→21:11)
[2020-06-20] MEDS: ZINC SULFATE 220 MG CAP PO SCH ×2 (10:43→21:11)
[2020-06-20] MEDS: dexAMETHasone 4 MG/ML VIAL IV SCH (10:43)
[2020-06-20 12:00] LABS: C-Reactive Protein 5.3 mg/dL (0.00-1.30)
[2020-06-20] MEDS: APIXABAN 5 MG TAB PO SCH ×2 (13:04→21:11)
[2020-06-20] MEDS: CHOLECALCIFEROL (VIT D3) 5,000 UNIT TAB PO SCH (13:04)
--- NOTE | 2020-06-20 15:53 | Progress Note ---
Assessment and Plan Cultures: Blood culture no growth to date A/P: 60-year-old man no past medical history admitted with COVID-19 pneumonia #Acute hypoxemic respiratory failure: Likely secondary to COVID-19 infection. #COVID-19 pneumonia: Patient presented with a week of symptoms, chest x-ray with diffuse bilateral infiltrates. Elevated inflammatory markers. Normal procalcitonin. Recs: -Continue Dexamethasone 6 mg IV/PO daily for 10 days -Continue Remdesivir. CrCl>30. Day 2 of 5 -Obtain daily inflammatory markers - ferritin, Ddimer, CRP, LDH -Anticoagulation per hospital protocol -Proning as able. Thank you for the consult, we will continue to follow. Misael Peace MD [facility] ([facility]) O: [phone] F: [phone] Subjective Date of service: 06/20/20 Interval history: Afebrile, no acute change present. Cultures remain negative. On 3 L nasal cannula. Objective - Exam Narrative Exam: Physical exam deferred due to PPE conservation strategy. Please refer to prima ry team's note. - Constitutional Vitals: Vital Signs Temp Pulse Resp BP Pulse Ox 97.9 F 94 H 16 104/68 95 06/20/20 12:09 06/20/20 14:56 06/20/20 14:56 06/20/20 12:09 06/20/20 14:57 Temperature -Last 24 Hours Temperature 97.9 F Temperature 97.4 F - Labs CBC & Chem 7: 06/19/20 04:47 06/19/20 04:47 Labs: Abnormal lab results 06/20/20 06/20/20 06/20/20 Range/Units 11:09 11:09 11:09 D-Dimer 967.35 H (0-234) ng/mlDDU Ferritin 960.1 H (30.0-300.0) ng/mL Lactate Dehydrogenase 265 H (91-180) units/L C-Reactive Protein 5.30 H (0.00-1.30) mg/dL
--- NOTE | 2020-06-20 18:42 | Progress Note ---
Assessment and Plan --Acute hypoxemic respiratory failure Possibly secondary to underlying pneumonia. Keep O2 saturation greater or equal to 94%. -- Pneumonia due to COVID 19 d/c empiric IV antibiotics as procalcitonon level low. Consult placed to infectious disease for evaluation. cont dexamethasone, start on remdesivir follow inflammatory markers -- Hypokalemia repleted and will monitor chemistry. -- Hyponatremia due to dehydration Patient placed on gentle IV fluid normal saline. Will monitor chemistry. --novel coronavirus infection positive COVID-19 testing. Consult placed to infectious disease for evaluation. -- DVT prophylaxis Patient placed on subcutaneous Lovenox. --Full code status 06/19/20: positive for COVID 19, start on remdesivir as patient is hypoxic and presented early in his disease course. consult ID. patient on 3L N/c 06/20: Patient remains on 3 L nasal cannula, day 2 of remdesivir, continue steroid, nebs as needed. Follow inflammatory markers. Continue unchanged vitamin C and vitamin D. DVT prophylaxis per COVID-19 protocol Subjective Date of service: 06/20/20 Interval history: Patient seen and examined. Medical records and medication list reviewed. No acute event overnight noted by the RN. Patient is positive for COVID-19. Patient is tolerating diet. Patient remains on 3 L nasal cannula, denies any chest pain Discussed plan of care at bedside with patient. Objective - Exam Narrative Exam: Limited physical exam due to COVID-19 pandemic to limit transmission of the disease and also PPE conservative approach Vitals noted General: No acute distress Neuro: No focal deficits, follow commands Psych: Alert awake and oriented x2 Respiratory/cardiac: Vitals stable, patient on 3 L nasal cannula noted no respiratory distress Skin: No rash Musculoskeletal: No joint swelling - Constitutional Vitals: Vital Signs - 12hr 06/20/20 06/20/20 06/20/20 06:46 07:00 07:30 Temperature Pulse Rate 72 72 77 Pulse Rate [ Bilateral] Respiratory 20 18 18 Rate Respiratory Rate [Bilateral ] Blood Pressure 109/64 109/64 108/33 O2 Sat by Pulse 97 96 97 Oximetry 06/20/20 06/20/20 06/20/20 07:46 08:16 08:46 Temperature Pulse Rate 72 77 87 Pulse Rate [ Bilateral] Respiratory 12 15 17 Rate Respiratory Rate [Bilateral ] Blood Pressure 100/26 106/62 112/52 O2 Sat by Pulse 97 98 96 Oximetry 06/20/20 06/20/20 06/20/20 09:16 09:30 10:00 Temperature Pulse Rate 74 75 Pulse Rate [ Bilateral] Respiratory 22 12 Rate Respiratory Rate [Bilateral ] Blood Pressure 96/28 105/60 O2 Sat by Pulse 98 96 98 Oximetry 06/20/20 06/20/20 06/20/20 10:46 11:00 11:08 Temperature 97.4 F L Pulse Rate 72 83 Pulse Rate [ Bilateral] Respiratory 17 23 Rate Respiratory Rate [Bilateral ] Blood Pressure 105/60 105/60 O2 Sat by Pulse 96 96 Oximetry 06/20/20 06/20/20 06/20/20 11:10 11:20 12:09 Temperature 97.9 F Pulse Rate 74 90 77 Pulse Rate [ Bilateral] Respiratory 20 24 24 Rate Respiratory Rate [Bilateral ] Blood Pressure 104/74 104/74 104/68 O2 Sat by Pulse 97 95 Oximetry 06/20/20 06/20/20 06/20/20 14:56 14:57 15:23 Temperature Pulse Rate Pulse Rate [ 94 H Bilateral] Respiratory Rate Respiratory 16 Rate [Bilateral ] Blood Pressure O2 Sat by Pulse 95 98 Oximetry 06/20/20 17:18 Temperature 98.0 F Pulse Rate 93 H Pulse Rate [ Bilateral] Respiratory 22 Rate Respiratory Rate [Bilateral ] Blood Pressure 109/81 O2 Sat by Pulse 93 Oximetry - Labs CBC & Chem 7: 06/19/20 04:47 06/19/20 04:47 Labs: Abnormal lab results 06/20/20 06/20/20 06/20/20 Range/Units 11:09 11:09 11:09 D-Dimer 967.35 H (0-234) ng/mlDDU Ferritin 960.1 H (30.0-300.0) ng/mL Lactate Dehydrogenase 265 H (91-180) units/L C-Reactive Protein 5.30 H (0.00-1.30) mg/dL SARS-CoV-2 IgG Ab (NonReactive) 06/20/20 Range/Units 16:14 D-Dimer (0-234) ng/mlDDU Ferritin (30.0-300.0) ng/mL Lactate Dehydrogenase (91-180) units/L C-Reactive Protein (0.00-1.30) mg/dL SARS-CoV-2 IgG Ab Reactive A (NonReactive) HEART Score - HEART Score Troponin: Troponin T < 0.010 ng/mL (0.00-0.029) 06/18/20 21:20
[2020-06-20] MEDS: REMDESIVIR 100 MG in SODIUM CHLORIDE 0.9% 250ML 250 ML IV SCH (21:10)
[2020-06-20] MEDS: SODIUM CHLORIDE 0.9% 50 ML IVPB IV SCH (21:11)
[2020-06-21] MEDS: IPRATROPIUM/ALBUTEROL SULFATE 3 ML AMPUL.NEB IH SCH ×4 (03:52→20:33)
[2020-06-21] MEDS: ZINC SULFATE 220 MG CAP PO SCH ×2 (10:50→22:04)
[2020-06-21] MEDS: APIXABAN 5 MG TAB PO SCH ×2 (10:50→22:04)
[2020-06-21] MEDS: dexAMETHasone 4 MG/ML VIAL IV SCH (10:50)
[2020-06-21] MEDS: ASCORBIC ACID 500 MG TAB PO SCH ×2 (10:50→22:04)
[2020-06-21] MEDS: CHOLECALCIFEROL (VIT D3) 5,000 UNIT TAB PO SCH (10:50)
[2020-06-21 11:12] LABS: Alanine Aminotransferase 50 units/L (7-56); Albumin 3.3 g/dL (3.9-5); Bilirubin,Direct < 0.2 mg/dL (0-0.2)
[2020-06-21 11:13] LABS: BUN/Creatinine Ratio 16; Blood Urea Nitrogen 16 mg/dL (9-20); Calcium 8.5 mg/dL (8.4-10.2); Hemolysis Index 3
--- NOTE | 2020-06-21 16:00 | Progress Note ---
Assessment and Plan Cultures: Blood culture no growth to date A/P: 60-year-old man no past medical history admitted with COVID-19 pneumonia #Acute hypoxemic respiratory failure: Likely secondary to COVID-19 infection. #COVID-19 pneumonia: Patient presented with a week of symptoms, chest x-ray with diffuse bilateral infiltrates. Elevated inflammatory markers. Normal procalcitonin. Recs: -Continue Dexamethasone 6 mg IV/PO daily for 10 days -Continue Remdesivir. CrCl>30. Day 3 of 5 -Obtain daily inflammatory markers - ferritin, Ddimer, CRP, LDH -Anticoagulation per hospital protocol -Proning as able. Thank you for the consult, we will continue to follow. Misael Peace MD [facility] ([facility] O: [phone] F: [phone] Subjective Date of service: 06/21/20 Interval history: Afebrile, no acute change at present. Oxygen decreased to 1 L nasal cannula. Objective - Exam Narrative Exam: Physical exam deferred due to PPE conservation strategy. Please refer to primary team's note. - Constitutional Vitals: Vital Signs Temp Pulse Resp BP Pulse Ox 98.2 F 94 H 20 96/62 98 06/21/20 12:02 06/21/20 13:45 06/21/20 13:45 06/21/20 12:02 06/21/20 13:50 Temperature -Last 24 Hours Temperature 98.2 F Temperature 98.0 F Temperature 98.1 F Temperature 98.0 F - Labs CBC & Chem 7: 06/19/20 04:47 06/21/20 10:04 Labs: Abnormal lab results 06/20/20 06/21/20 06/21/20 Range/Units 16:14 10:04 10:04 Sodium 133 L (137-145) mmol/L Potassium 3.4 L D (3.6-5.0) mmol/L Glucose 115 H (75-100) mg/dL AST 42 H (5-40) units/L Albumin 3.3 L (3.9-5) g/dL SARS-CoV-2 IgG Ab Reactive A (NonReactive)
[2020-06-21] MEDS ORDERED: POTASSIUM CHLORIDE ER 20 MEQ TAB PO ONE (17:33)
--- NOTE | 2020-06-21 18:00 | Progress Note ---
Assessment and Plan --Acute hypoxemic respiratory failure Possibly secondary to underlying pneumonia. Keep O2 saturation greater or equal to 94%. -- Pneumonia due to COVID 19 d/c empiric IV antibiotics as procalcitonon level low. Consult placed to infectious disease for evaluation. cont dexamethasone, started on remdesivir follow inflammatory markers -- Hypokalemia repleted and will monitor chemistry. -- Hyponatremia due to dehydration Patient placed on gentle IV fluid normal saline. monitor chemistry. --Novel coronavirus infection positive COVID-19 testing. Consult placed to infectious disease for evaluation. -- DVT prophylaxis Patient placed on subcutaneous Lovenox. --Full code status 06/19: Positive for COVID 19, start on remdesivir as patient is hypoxic and presented early in his disease course. consult ID. patient on 3L N/c 06/20: Patient remains on 3 L nasal cannula, day 2 of remdesivir, continue steroid, nebs as needed. Follow inflammatory markers. Continue unchanged vitamin C and vitamin D. DVT prophylaxis per COVID-19 protocol 06/21: Patient remains on 3L O2 today. day 3 of remdesivir, cont steroid. if remains clinically stable and off O2 will d/c tomorrow Subjective Date of service: 06/21/20 Interval history: Patient seen and examined. Medical records and medication list reviewed. No acute event overnight noted by the RN. Patient is positive for COVID-19. Patient is tolerating diet. Patient remains on 3L O2 today, denies any chest pain Discussed plan of care at bedside with patient. Objective - Exam Narrative Exam: Limited physical exam due to COVID-19 pandemic to limit transmission of the disease and also PPE conservative approach Vitals noted General: No acute distress Neuro: No focal deficits, follow commands Psych: Alert awake and oriented x2 Respiratory/cardiac: Vitals stable, patient on 3 L nasal cannula noted no respiratory distress Skin: No rash Musculoskeletal: No joint swelling - Constitutional Vitals: Vital Signs - 12hr 06/21/20 06/21/20 06/21/20 08:39 08:40 12:02 Temperature 98.2 F Pulse Rate 75 Pulse Rate [ 96 H Bilateral] Respiratory 18 20 Rate Respiratory 20 Rate [Bilateral ] Blood Pressure 96/62 O2 Sat by Pulse 95 96 Oximetry 06/21/20 06/21/20 06/21/20 13:45 13:48 13:50 Temperature Pulse Rate Pulse Rate [ 94 H Bilateral] Respiratory Rate Respiratory 20 Rate [Bilateral ] Blood Pressure O2 Sat by Pulse 98 98 Oximetry - Labs CBC & Chem 7: 06/19/20 04:47 06/21/20 10:04 Labs: Abnormal lab results 06/21/20 06/21/20 Range/Units 10:04 10:04 Sodium 133 L (137-145) mmol/L Potassium 3.4 L D (3.6-5.0) mmol/L Glucose 115 H (75-100) mg/dL AST 42 H (5-40) units/L Albumin 3.3 L (3.9-5) g/dL HEART Score - HEART Score Troponin: Troponin T < 0.010 ng/mL (0.00-0.029) 06/18/20 21:20
[2020-06-21] MEDS: REMDESIVIR 100 MG in SODIUM CHLORIDE 0.9% 250ML 250 ML IV SCH (22:04)
[2020-06-21] MEDS: SODIUM CHLORIDE 0.9% 50 ML IVPB IV SCH (22:05)
[2020-06-22] MEDS: IPRATROPIUM/ALBUTEROL SULFATE 3 ML AMPUL.NEB IH SCH ×2 (08:58→14:31)
[2020-06-22] MEDS: ASCORBIC ACID 500 MG TAB PO SCH (09:13)
[2020-06-22] MEDS: APIXABAN 5 MG TAB PO SCH (09:13)
[2020-06-22] MEDS: CHOLECALCIFEROL (VIT D3) 5,000 UNIT TAB PO SCH (09:13)
[2020-06-22] MEDS: ZINC SULFATE 220 MG CAP PO SCH (09:13)
[2020-06-22] MEDS ORDERED: DEXAMETHASONE 4 MG TAB PO SCH (10:00)
--- NOTE | 2020-06-22 16:14 | Discharge Summary ---
Providers - Providers Date of Admission: 06/19/20 10:28 Date of discharge: 06/22/20 Attending physician: RAMIDA CAMP 06/18/20 22:41 Consult to Physician [CONS] Routine Comment: Consulting Provider: TOÑO BULL Physician Instructions: Reason For Exam: Pneumonia R/O COVID -19 Primary care physician: S[employer]IOR TE[employer] ENG[employer]ER Hospitalization Condition: Stable Hospital course: Discharge diagnosis: --Acute hypoxemic respiratory failure Possibly secondary to underlying pneumonia. Keep O2 saturation greater or equal to 94%. -- Pneumonia due to COVID 19 d/c empiric IV antibiotics as procalcitonon level low. Consult placed to infectious disease for evaluation. Cont dexamethasone, started on remdesivir follow inflammatory markers -- Hypokalemia repleted and will monitor chemistry. -- Hyponatremia due to dehydration Patient placed on gentle IV fluid normal saline. monitor chemistry. --Novel coronavirus infection positive COVID-19 testing. Consult placed to infectious disease for evaluation. -- DVT prophylaxis Patient placed on subcutaneous Lovenox. --Full code status Disposition: DC-30 STILL A PATIENT Time spent for discharge: 34 minutes Core Measure Documentation - Palliative Care Palliative Care/ Comfort Measures: Not Applicable - Core Measures Any of the following diagnoses?: none Exam - Physical Exam Narrative exam: Limited physical exam due to COVID-19 pandemic to limit transmission of the disease and also PPE conservative approach Vitals noted General: No acute distress Neuro: No focal deficits, follow commands Psych: Alert awake and oriented x2 Respiratory/cardiac: Vitals stable, patient on 3 L nasal cannula noted no respiratory distress Skin: No rash Musculoskeletal: No joint swelling - Constitutional Vitals: Temp Pulse Resp BP Pulse Ox 98.0 F 94 H 18 108/76 95 06/21/20 21:48 06/22/20 14:31 06/22/20 14:31 06/22/20 12:13 06/22/20 13:14 Plan Activity: no restrictions Weight Bearing Status: Weight Bear as Tolerated Diet: low fat, low salt Follow up with: PRIMARY CARE, [Primary Care Provider] - 3-5 Days Prescriptions: dexAMETHasone [Decadron] 6 mg PO DAILY #7 tablet Apixaban [Eliquis] 5 mg PO Q12HR #14 tablet Ascorbic Acid [Vitamin C] 1,000 mg PO BID #14 tablet Cholecalciferol (Vitamin D3) [Vitamin D3] 5,000 unit PO DAILY #7 tablet Zinc Sulfate 220 mg PO BID #14 capsule
[2020-06-22 16:56] VITALS: BP 125/89
[2020-06-22] MEDS ORDERED: REMDESIVIR 100 MG in SODIUM CHLORIDE 0.9% 250ML 250 ML IV SCH (17:00)
== END 2020-06-22 17:45 | disposition home or self-care (01) | DRG 177 ==
LOC: ED 19:53 → 3A 22:15 → EEVIPCON 06-19 10:28 → OBSVTOIN 06-19 10:28 → 3A 06-20 09:34
PROVIDERS: ADMIT Internal Medicine Geriatric Medicine; ATTEND Internal Medicine
PROC: XW033E5 Introduction of Remdesivir Anti-infective into Peripheral Vein, Percutaneous Approach, New Technology Group 5 (ICD-10-PCS; principal; 2020-06-19)
DX: U07.1 COVID-19 (principal); J96.01 Acute respiratory failure with hypoxia; J12.82 Pneumonia due to coronavirus disease 2019; E87.1 Hypo-osmolality and hyponatremia; E86.0 Dehydration; E87.6 Hypokalemia; Z87.891 Personal history of nicotine dependence; Z79.899 Other long term (current) drug therapy; Z79.01 Long term (current) use of anticoagulants; Z79.891 Long term (current) use of opiate analgesic
CPT/HCPCS: 36415; 71046; 80048; 80053; 80076; 82728; 82947; 83615; 83880; 84145; 84484; 85025; 85379; 85610; 85730; 86140; 87040; 93005; 94640; 94760; G0378; J0456; J0696; J1100; J1650; J7030; J7050; J8540; U0003